=== PATIENT | female | born 1945 | race Caucasian/White ===

== ENCOUNTER 2017-04-20 04:57 | Inpatient (IN) | payer MEDICARE ==
[~2017-04-20] VITALS: Ht 162.6 cm; Wt 47.6 kg
[2017-04-20] MEDS ORDERED: AZITHROMYCIN INJ 500 MG, VIAL MATE ADAPTER 1 EACH in D5W 250 ML IV ONE (05:30)
[2017-04-20 05:35] LABS: ABG BASE EXCESS -5.3 (-2.0-2.0); ABG HCO3 19.8 MEQ/L (22.0-26.0); ABG PARTIAL PRESSURE CO2 36.8 mmHg (35.0-45.0); ABG PARTIAL PRESSURE O2 98.5 mmHg (75.0-100.0); ABG STANDARD HCO3 20.1 MEQ/L (22.0-26.0); ABG TOTAL CO2 20.9 MEQ/L (23.0-31.0); ABG pH (ARTERIAL) 7.348 UNITS (7.350-7.450)
[2017-04-20] MEDS ORDERED: LEVO1INJ IV (05:45)
[2017-04-20] MEDS ORDERED: NITR2OI TOP (05:45)
[2017-04-20] MEDS ORDERED: AZIT500I IV (05:45)
[2017-04-20 05:47] LABS: ADD MANUAL DIFFER YES; DIFF SLIDE NUMBER 92; MEAN CORPUSCULAR HEMOGLOBIN 28.4 pg (27.0-33.0); MEAN CORPUSCULAR HGB CONC 34.3 g/dl (32.0-36.5); PLATELET COUNT, AUTOMATED 374 k/mm3 (150-450); RED CELL DISTRIBUTION WIDTH 14.9 % (11.5-14.5)
[2017-04-20] MEDS ORDERED: PATIENT COMMENT (05:48)
[2017-04-20 06:10] LABS: CALCIUM LEVEL 8.8 MG/DL (8.8-10.2); CREATININE FOR GFR 4.2 MG/DL (0.55-1.02); GLOMERULAR FILTRATION RATE 11.1 (>39); POTASSIUM SERUM 3.8 MEQ/L (3.5-5.1); THYROXINE (T4) 8.7 UG/DL (4.5-12.0)
[2017-04-20 06:14] LABS: BANDS 2 % (< 11); BASOPHILS 2 % (0-4); EOSINOPHILS 1 % (0-5)
--- NOTE | 2017-04-20 06:18 | HPEPDOC ---
[facility] Medical History & Physical History and Physical Primary care provider: Unknown Date of Admission: 04/20/2017 Attending: Dr. Cathy Moe CHIEF COMPLAINT: Altered mental status in the setting of acute renal failure HISTORY OF PRESENT ILLNESS: A sticky note on the front of the chart received from [facility] indicates that a person of contact is Chitra Whittington , multiple attempts to contact her have been made by our ED staff with no avail. The patient is not conversant, the only thing she says is "no" and shakes her head. All history was obtained from medical records. The patient was transferred to our facility from [facility]. Apparently she is from [place], she turned to [place] to visit her ex- who is now on hospice. The following is a direct quote from the [facility] ED HPI : "She has been in the [facility] for 5 days where she has been living with her daughter. Over the span of time she has been getting weaker and weaker, not eating, not drinking and feeling very tired with a productive cough over the same timeframe. No fever but some chills." Also nursing note from [facility] states: "Daughter states patient has been with her for 5 days and she has seen a steady decline in her health. Patient staggers when she walks, has trouble focusing, falling asleep, dropping things. Patient complaining of pain in back" ALLERGIES: Penicillins-anaphylaxis PAST MEDICAL HISTORY: [place] Press cancer left breast Diabetes mellitus Hypertension High cholesterol Depression Cervical CA PAST SURGICAL HISTORY: Gallbladder Hysterectomy Left breast CA Back surgery Appendix SOCIAL HISTORY: 50+ pack year smoking, currently 1 pack per day smoker FAMILY HISTORY: Could not find in any medical record REVIEW OF SYSTEMS: Unobtainable PHYSICAL EXAMINATION: Vitals: Temperature 98.7, pulse 87, respiratory rate 20, blood pressure 113/58, pulse oximetry 100% on 2 L nasal cannula General: Reclined in the ED stretcher. She has not really awake, neither alert. She does not answer questions appropriately. HEENT: Head normocephalic atraumatic, pupils equally reactive to light and accommodation, conjunctiva are pink, sclera are nonicteric. Buccal mucosa appears dry. Respiratory: Moderate to heavy expiratory and inspiratory wheezing noted throughout Cardiovascular: Heart sounds were difficult to distinguish however she appears to have a regular rate and rhythm, with no rubs, gallops, or murmur. Abdomen: Soft, no hepatosplenomegaly appreciated. She does not appear to grimace upon palpation. Bowel sounds present. Extremities: 2+ pulses in the radial and dorsalis pedis bilaterally. No evidence of clubbing or cyanosis. As a matter fact she appears to be clinically dry with tenting of the skin. ELECTROCARDIOGRAM: Sinus tachycardia. Minimal voltage criteria for LVH, maybe normal variant IMAGING: CT of the chest and abdomen is currently pending. These were performed to evaluate the presence of pneumonia, and determine if there are any structural abnormalities and may contribute to renal failure. ASSESSMENT: 1. Metabolic encephalopathy 2. Acute renal failure 3. Suspected pneumonia 4. Presumed COPD from medical record, with significant wheezing currently 5. DVT Prophylaxis with Heparin PLAN: Given Levaquin at [facility], azithromycin was added upon arrival to our emergency department. Will order a CT scan of the chest and abdomen for evaluation of pneumonia as well as to determine if there are any thien structural abnormalities or hydronephrosis contributing to the cause of her acute renal failure. Will start her on normal saline, give her nebs for her wheezing, check serial check labs, and check Q6 fingersticks. Nephrology will be consulted in the morning. It is unclear at to whether her kidney disease is acute or chronic, and impossible at this time to know her baseline. No clear etiology for her altered mental status at this time either. My preceptor for this patient encounter was physically present in the building during the encounter and was fully available. As needed, all aspects of the patient interview, examination, medical decision making process, and medical care plan development were reviewed and approved by the preceptor. Preceptor is aware and concurs with the plan as stated in the body of this note and will attest to such by his/her cosignature. Laboratory Data Labs 24H Laboratory Tests 2 04/20/17 05:17: Blood Gas Bicarbonate Standard 20.1L, Arterial Blood pH 7.348L, Arterial Blood Partial Pressure CO2 36.8, Arterial Blood Partial Pressure O2 98.5, Arterial Blood Total CO2 20.9L, Arterial Blood HCO3 19.8L, Arterial Blood Base Excess - 5.3L, Arterial Blood Oxygen Saturation 97.2 04/20/17 05:22: Neutrophils 76H, Band Neutrophils 2, Lymphocytes (Manual) 12L, Monocytes (Manual ) 7, Eosinophils (Manual) 1, Basophils (Manual) 2, Platelet Estimate INCREASED, Red Blood Cell Morphology NORMAL, Anion Gap 13, Glomerular Filtration Rate 11.1L , Lactic Acid Level 0.9, Blood Urea Nitrogen 51H, Creatinine 4.20H, Sodium Level 133L, Potassium Level 3.8, Chloride Level 96L, Carbon Dioxide Level 24, Calcium Level 8.8, Thyroid Stimulating Hormone (TSH) 0.195L, Free Thyroxine Index 3.0, Thyroxine (T4) 8.7, Triiodothyronine (T3) Uptake 35 CBC/BMP Laboratory Tests 04/20/17 05:22 Red Blood Count 4.13, Mean Corpuscular Volume 83.0, Mean Corpuscular Hemoglobin 28.4, Mean Corpuscular Hemoglobin Concent 34.3, Red Cell Distribution Width 14.9 H, Calcium Level 8.8 Microbiology Microbiology 04/20/17 Blood Culture, Received Pending Home Medications Scheduled (Levofloxacin in 5% Dextro 500 mg/100Ml) 1 Inj Inj, 1 INJ IV ASDIRECTED 1 TIME DOSE AT [facility] Azithromycin (Azithromycin) 500 Mg Inj, 500 MG IV ASDIRECTED 1 TIME DOSE AT [facility] Nitroglycerin (Nitro-Bid) 1 Gm Oint, 0.5 GM TOP ASDIRECTED 1 TIME DOSE AT [facility] Miscellaneous Medications [Patient Comment] PATIENT VERY LETHARGIC, UNABLE TO GIVE ANSWER TO MEDICATIONS OR PHARMACY, HAVE NUMBER FOR BEST FRIEND. TRIED AT 5:40, NO ANSWER. WILL HAVE NEXT SHIFT TRY. Allergies Coded Allergies: Penicillins (Verified Allergy, Severe, anaphylaxis , 04/20/17) OSMIN FONG DO Apr 20, 2017 06:18
--- NOTE | 2017-04-20 06:50 | REPUSA ---
CLINICAL HISTORY: Suspected pneumonia. TECHNIQUE: Multiple axial CT images were obtained through the thorax without IV contrast material. COMMENTS: There is bilateral peribronchial interstitial thickening suggestive of bronchitis. Mild emphysema. Scattered bilateral nodular groundglass densities of the lungs. Airspace consolidation in the lingula with early central cavitation. There are no pleural effusions. There is no evidence of hilar or mediastinal lymphadenopathy. The hea rt and great vessels are within normal limits. The visualized portions of the liver are of uniform attenuation without mass or defect. There is no i ntra or extrahepatic biliary ductal dilatation. The spleen is unremarkable. The visualized pancreas i s of normal contour and attenuation characteristics. There is no evidence of adrenal mass. The visual ized portions of the kidneys present no abnormalities. The bony structures are free of lytic or blastic lesions. IMPRESSION: Multifocal airspace disease. Possibly bronchopneumonia. Early cavitation and a lingular consolidation. Clinical evaluation and followup are suggested to excl ude underlying neoplastic pathology. Bronchiolitis. Emphysema. Thank you for your kind referral of this patient.
--- NOTE | 2017-04-20 07:00 | REPUSA ---
CLINICAL HISTORY: Abdominal pain. TECHNIQUE: Multiple axial, sagittal and coronal CT images were obtained through the abdomen and pelvi s without administration of oral or IV contrast material. COMMENTS: Diffuse thickening of the wall of the colon. Diffuse thickening of the proximal small bowels. Mild hepatomegaly. Diffuse thickening of the bladder. Cholecystectomy. The liver is of uniform attenuation without mass or defect. There is no intra or extrahepatic biliary ductal dilatation. The spleen is normal. The gallbladder is surgically absent. The pancreas is of normal contour and attenuation characteristi cs. The kidneys are normal in size, shape and configuration. No renal or ureteral calculi are identified. There is no hydroureter or hydronephrosis. 2.5 cm left adrenal adenoma. Probably benign. There is no evidence for appendicitis. No evidence for small or large bowel obstruction. There is no evidence of abdominal ascites or lymphadenopathy. There is no evidence of intrinsic or extrinsic bladder mass. There is no pelvic ascites or lymphadeno huang. Images of the lung bases show no evidence of pleural or parenchymal mass. There are no pleural effusi ons. The bony structures are free of lytic or blastic lesions. Multilevel degenerative changes are seen in volving the thoracolumbar spine. Scattered calcifications are seen involving the aorta and major branches compatible with atherosclero sis. Bilateral breast prostheses are noted. IMPRESSION: Enterocolitis. No perforation or abscess formation. No free fluid. No evidence of pneumatosis intestinalis. Cholecystectomy. Hepatomegaly. Thank you for your kind referral of this patient.
[2017-04-20 07:40] VITALS: BP 118/55
--- NOTE | 2017-04-20 07:47 | REP ---
Portable chest, 05:25 a.m., single AP view, patient sitting: There are interstitial infiltrates. There is focal increased radiodensity inferiorly in the left lung compatible with a focal alveolar infiltrate. There are no pleural effusions. Cardiac size is normal. The bindu, mediastinum, and bony thorax are unremarkable. Impression: Interstitial infiltrates. Focal alveolar infiltrate inferiorly in the left lung. Signed by Parveen Ag MD 04/20/2017 07:39 A
[2017-04-20 08:00] VITALS: BP 130/60
[2017-04-20] MEDS: IPRATROPIUM 0.5MG/ALBUTEROL 2.5MG INH SOL UD 3ML (DUONEB)(J7620) NEB SCH ×3 (08:00→23:40)
[2017-04-20] MEDS: TIOTROPIUM INHALER/CAPSULE (SPIRIVA) INH SCH (08:00)
[2017-04-20] MEDS: ADVAIR HFA 230/21MCG INHALER INH SCH ×2 (09:00→20:37)
[2017-04-20] MEDS: NS 1,000 ML IV SCH ×2 (09:42→17:35)
[2017-04-20] MEDS ORDERED: NS 1,000 ML IV ONE (10:00)
[2017-04-20 10:15] LABS: CHOLESTEROL LEVEL 126 MG/DL (<200); FERRITIN 340 NG/ML (8-252); MAGNESIUM LEVEL 1.5 MG/DL (1.8-2.4); PERCENT SATURATION 6.6 % (13.2-45.0); PHOSPHORUS LEVEL 5.7 MG/DL (2.5-4.9); TOTAL IRON BINDING CAPACITY 242 UG/DL (250-450); TRIGLYCERIDES LEVEL 310 MG/DL (<150)
[2017-04-20] MEDS: SENOKOT S TAB PO SCH ×2 (10:20→21:02)
[2017-04-20] MEDS: HEPARIN SOD (PORCINE) 5000 UNITS/ML VIAL SC SCH ×2 (10:41→21:03)
[2017-04-20] MEDS: ALBUTEROL SULFATE 2.5 MG/0.5 ML INH NEB SOLN NEB PRN ×2 (10:50→20:35)
[2017-04-20 12:00] VITALS: BP 143/74
[2017-04-20] MEDS ORDERED: cefTRIAXone SOD 1 GM in D5W MINI-BAG PLUS 50 ML IV ONE (12:15)
--- NOTE | 2017-04-20 12:41 | CR ---
DATE OF CONSULTATION: 04/20/2017 REQUESTING PHYSICIAN: Dr. Manjinder Nguyen. CONSULTING PHYSICIAN: Dr. Henderson. REASON FOR CONSULTATION: Management of acute kidney injury with an unknown past medical history. CHIEF COMPLAINT: Patient was transferred from [facility] last night because of acute renal failure, weakness and cough. HISTORY OF PRESENT ILLNESS: Most of the history was obtained from patient's chart and from primary medical team. Patient is unable to provide any reliable history at this time. Yamileth Madison is a 72-year-old female and as per chart documentation, patient has a past medical history of diabetes mellitus type 2, hypertension, history of CA breast and CA cervix in the past. She was recently visiting [place] for the 5 days. She was staying with her daughter. She was here to see her ex- who in the hospice at this time and as reported by daughter, patient was feeling very weak, tired, lethargic, was getting more and more confused, was not eating anything or drinking anything. She was having a productive cough for the last 1 week almost. She had trouble doing her activities of daily life. Patient was found to have acute renal failure on labs done at [facility] so she was transferred to [facility] overnight to intensive care unit (ICU) for further management and higher level of care. On arrival, patient got IV antibiotics. She has received IV azithromycin and Levaquin. Initial imaging done on admission to intensive care unit (ICU) showed that she had multifocal air space disease, possibly bronchopneumonia. Initial labs on arrival showed that her creatinine was 4.2. Nephrology service was called for further help in the management of acute renal failure. There is no known history of renal disease in the past and past labs are not known because patient is from [place] at this time. When I saw the patient today morning in the intensive care unit (ICU), she was actively wheezing. She was in mild to moderate respiratory distress. She was otherwise hemodynamically stable. She was very dry and dehydrated. She had not received any IV fluids since overnight when I saw the patient and there was no urine output recorded. Patient was unable to provide any reliable history to me. PAST MEDICAL HISTORY: Patient has a past medical history of: Diabetes mellitus type 2. History of hypertension. Hyperlipidemia. Depression. History of CA cervix in the past. History of left breast cancer. Myocardial infarction ([place]) in the past. PAST SURGICAL HISTORY: Status post cholecystectomy in the past. Status post hysterectomy in the past. Status post left breast cancer surgery. History of back surgery. Appendix surgery in the past. ALLERGIES: There is history of allergies to PENICILLIN with anaphylactic reaction. FAMILY HISTORY: Family history is not available at this time and patient is unable to provide any family history. SOCIAL HISTORY: Patient is from [place]. She was just visiting her daughter at [place] for the last 5-6 days. There is 50+ pack year history of smoking. When I asked the patient this morning, she actually admitted that she is an active smoker but she denies any history of chronic obstructive pulmonary disease (COPD). REVIEW OF SYSTEMS: Patient is very obtunded and confused at this time. She is unable to provide any reliable review of systems to me but she is in moderate respiratory distress and she was tachypneic. PHYSICAL EXAMINATION: General: Patient is drowsy, obtunded, oriented times one, lying in bed, moderate respiratory distress. Vital signs: Temperature is 98 degrees Fahrenheit, blood pressure is 130/60, pulse is 92, respiratory rate of 21, saturation 99% on nasal cannula. Head and neck exam: Pupils equally round and reactive to light. Patient is weak and cachectic with some temporal wasting. Mucous membranes are very dry. She has a very dry and beefy tongue. Neck is supple. There is no jugular venous distention (JVD). Cardiovascular: S1, S2. Regular rate. No murmur, rub or gallop. Respiratory: Patient has active wheezing. Patient has expiratory rhonchi all over the lungs and there is decreased air entry at the bases. Abdomen is soft, positive bowel sounds. No organomegaly. No ascites is noted. There is old midline abdominal surgical scar present. Musculoskeletal: No clubbing or cyanosis. Pulses are 2+. No edema of the extremities. Skin: No rashes or ulceration. Patient has very dry skin with no skin turgor. Psych: Patient is obtunded. Lymph node: No significant, cervical, axillary or inguinal lymphadenopathy noted. LAB REVIEW: CBC showed WBC of 11, hemoglobin 11.7, platelets are 374. ABC showed pH of 7.34, pCO2 of 36.8, pO2 98.5. Bicarbonate of 20.9. Oxygen saturation is 97.2%. BMP showed sodium 133, potassium 3.8, chloride 96, bicarbonate 24. BUN 51, creatinine is 4.2. A1c is 7.9. Phosphorus 5.7. Magnesium 1.5. Patient has low iron levels with a high ferritin of 340. TSH is 0.19 with a normal free T4 and T3. PTH is 137. There is no urinalysis available at this time. Microbiology: Blood cultures are pending. IMAGING: A CT scan of the abdomen and pelvis showed enterocolitis. No perforation or abscess. No free fluid. History of cholecystectomy. A CT scan of the chest was done which showed multifocal air space disease, possibly bronchopneumonia. Early cavitation and lingular consolidation was also seen. There was emphysema as well. CURRENT INPATIENT MEDICATION: Patient's medications were all reviewed by me. She is currently in azithromycin 500 mg IV times one dose was given. She is on Levaquin 250 mg IV every 48 hours. I gave her normal saline bolus 1 liter. She was started on normal saline at 160 an hour. Patient is on DuoNeb nebulizations every 2 hours. She is on heparin subcutaneous and Zofran as needed. ASSESSMENT: 72-year-old female with past medical history of diabetes mellitus type 2, hypertension, history of CA cervix and CA breast in the past, admitted this time to intensive care unit (ICU) with pneumonia, sepsis, altered mental status and acute renal failure along with moderate respiratory distress. PLAN: 1. Acute renal failure. There is no baseline renal function known. Patient is from [place]. I would assume in this acute setting of pneumonia, dehydration, poor oral intake, it must be an acute kidney injury. Patient looks very dry and volume depleted. I gave her a bolus of normal saline. I have also placed a Ma catheter around 120 mL of dark colored urine came out. Continue to monitor intake and output. Avoid bridgett inhibitors, angiotensin receptor blockers (ARBs), non-steroidal anti-inflammatory drugs (NSAID)s, IV contrast studies at this time. Continue IV fluid hydration at 150 mL/hr. As far as I can see on CT scan, the kidneys look to be normal in size. 2. Hyponatremia. This is most likely hypovolemic hyponatremia. Sodium level is expected to improve with normal saline hydration. 3. Sepsis secondary to bronchopneumonia. Patient is allergic to penicillins. She has been started on IV azithromycin and IV Levaquin. Continue the antibiotics at this time. Lactate is normal and she is hemodynamically stable. 4. Acute chronic obstructive pulmonary disease (COPD) exacerbation. Patient is currently actively wheezing. COPD exacerbation might have been secondary to bronchopneumonia and acute infection. Continue the IV antibiotics. Patient will be started on nebulizations. She has not received any nebulizations since overnight. I have also called pulmonary service to help us in the management of this patient. Patient most likely has chronic COPD because of history of 50 pack year of smoking. 5. Metabolic encephalopathy. It is most likely secondary to a combination of acute renal failure, dehydration and volume depletion and bronchopneumonia along with COPD. Continue IV fluid hydration and IV antibiotics. Management of COPD as per pulmonology service. There is no urgent indication to do hemodialysis at this time. Continue close monitoring in the intensive care unit (ICU) at this time. 6. Diabetes mellitus type 2. Hemoglobin A1c is 7.9 at this time. Fasting glucose is 147. Continue the insulin sliding scale at this time. Avoid metformin. 7. Iron deficiency anemia. Patient has low iron levels. Hemoglobin is 11.7. No IV iron at this time because of active infection. When patient's clinical status improves, she will be started on oral iron therapy. 8. Secondary hyperparathyroidism. PTH level is 137 which is higher than normal, however, I am not going to start the calcitriol at this time. I am hopeful that patient will recovery from acute kidney failure. Thank you for involving us in the care of this patient. We shall be happy to follow the patient along with you tomorrow morning. I spent a total of 45 minutes in the critical care of this patient in the intensive care unit. Plan of care was discussed with the patient's RN at the bedside, with the hospitalist team and with pulmonary critical care service today morning in the intensive care unit (ICU).
[2017-04-20] MEDS ORDERED: CELE100C PO (13:11)
[2017-04-20] MEDS ORDERED: TEMA15CA2 PO (13:11)
[2017-04-20] MEDS ORDERED: OXYC40TA29 PO (13:11)
[2017-04-20] MEDS ORDERED: FLUO40CA PO (13:11)
[2017-04-20] MEDS ORDERED: METF10004 PO (13:11)
[2017-04-20] MEDS ORDERED: LYRI150C PO (13:11)
[2017-04-20] MEDS ORDERED: DIAZ5TAB PO (13:11)
[2017-04-20] MEDS ORDERED: BACL10TA2 PO (13:11)
[2017-04-20] MEDS ORDERED: LETR2.5T2 PO (13:11)
[2017-04-20] MEDS ORDERED: JANU100T PO (13:11)
[2017-04-20] MEDS: metroNIDAZOLE 500 MG in APPROPRIATE DILUENT 1 EA IV SCH ×2 (14:27→21:03)
[2017-04-20 15:36] LABS: ALBUMIN 1.9 GM/DL (3.2-5.2); CALCIUM LEVEL 8.1 MG/DL (8.8-10.2); CREATININE FOR GFR 3.94 MG/DL (0.55-1.02); PHOSPHORUS LEVEL 4.9 MG/DL (2.5-4.9); POTASSIUM SERUM 4.4 MEQ/L (3.5-5.1)
[2017-04-20 16:00] VITALS: BP 109/55
--- NOTE | 2017-04-20 16:24 | CR ---
DATE OF CONSULTATION: 04/20/2017 REQUESTING PROVIDER: Dr. Henderson REASON FOR CONSULTATION: Pneumonia in a smoker with wheezing and probably chronic obstructive pulmonary disease (COPD). HISTORY OF PRESENT ILLNESS: Ms. Madison is a 72-year-old female who reportedly came to visit in the area due to an ex- on hospice. She was noticed by her daughter to have increased weakness, decreased appetite, decreased eating over the past few days and also presented with some abdominal discomfort and confusion. She presented to [facility] and was found to have acute renal failure and sent here. Based on imaging, there is some question of pneumonia verus enterocolitis. Initially she was on Levaquin. Nephrology was consulted for acute kidney injury. The patient states that she is an active smoker, smoking a pack a day. She answers "no" to most questions, including chest pain, hemoptysis. It is not clear that she is having a productive cough. The history is quite unreliable and difficult due to the patient's ability to provide her own history, and her family is not at bedside or obtainable by phone at this time. PAST MEDICAL HISTORY: Difficult also to obtain. 1. Patient reportedly has coronary artery disease. 2. Had a left-sided breast cancer, which is fairly obvious by chest CT, as there are breast implants. 3. Hypertension. 4. Type 2 diabetes. 5. Hyperlipidemia. 6. History of cervical cancer. 7. Nicotine dependence with presumed chronic obstructive pulmonary disease (COPD). HOME MEDICATIONS: In questions. MEDICATIONS IN THE HOSPITAL: Include: - acetaminophen - Senokot - Zofran - heparin 500 units subcutaneous twice a day for deep vein thrombosis (DVT) prophylaxis. - levofloxacin 250 mg intravenous (IV) It does appear based on the history and physical that the patient was on by mouth Levaquin prior to admission. REVIEW OF SYSTEMS: At this point in time, review of systems is unobtainable. SOCIAL HISTORY: Unobtainable. FAMILY HISTORY: Unobtainable. PHYSICAL EXAMINATION: VITAL SIGNS: Temperature is 98.0, pulse is 92, respiratory rate is 21, blood pressure is 130/60, oxygen saturation is 99% on 1 liter. GENERAL: Patient is lying in bed with her eyes closed. Not readily answering questions. Does not appear to be tachypneic. HEENT: Sclerae clear and anicteric. Pupils are 6 mm and reactive to light. Mucous membranes are dry. Tongue is dry, midline. She is edentulous with upper and lower dentures in place. NECK: Supple. No tracheal deviation. No mass. No thyromegaly. No cervical, supraclavicular, or axillary adenopathy. CARDIAC: Distant S1, S2 without audible murmur, rub, or gallop. No elevated jugular venous pulse (JVP). No peripheral edema. PULMONARY: There is diffuse expiratory wheeze in both velarde but more prominent on the left. There is no dullness to percussion. No rhonchi. No rales. ABDOMEN: Soft, nontender, nondistended, although there is mention of hepatomegaly on her CT scan. I did not palpate this on exam. No evidence of mass or hernia. No splenomegaly. No bruits of large vessels of abdomen. EXTREMITIES: No cyanosis, clubbing, or edema. MUSCULOSKELETAL: Appears to have some muscle wasting. No obvious fracture or joint effusion. NEUROLOGIC: No unilateral weakness, tremor, or myoclonus. No asterixis. LABORATORY EVALUATION: Shows sodium 133, potassium 3.8, bicarbonate of 24, BUN of 51, creatinine of 4.2 with a glucose of 147. White blood cell count is 11.0, hemoglobin 11.7, hematocrit of 34.2 with a platelet count of 374 with 76% neutrophilia. Arterial blood gas shows a pH of 7.35, pCO2 of 37, paO2 of 99. Chest CT shows a lingular infiltrate. There are some nonspecific areas of inflammation that were referred to as bronchiolitis by the interpreting radiologist. Minimal amount of emphysema. Possibly bronchiectasis versus peribronchial thickening. No significant lymphadenopathy. Abdominal CT mentions hepatomegaly and possibility of enterocolitis. ASSESSMENT: 1. Abnormal chest CT. Probably community-acquired lingular pneumonia versus radiation fibrosis. I am not aware of the actual treatment she received for her left-sided breast cancer, and therefore with the findings of leukocytosis, altered mental status, and dehydration in a smoker with infiltrate, I think it is reasonable to treat as this is a community-acquired pneumonia with ceftriaxone and azithromycin. Ceftriaxone will partially cover any gastrointestinal (GI) pathogen, and the primary care has added Flagyl for possible enterocolitis. 2. Chronic obstructive pulmonary disease (COPD) with wheeze on exam. I presume the patient has COPD, although I do not have pulmonary function testing to validate this suspicion. I will place the patient on Advair and Spiriva at this point in time. I do not believe she requires steroids. Will continue to monitor. 3. Nicotine dependence. Extensively counseled on the need to quit smoking. At this point in time I do not believe she is able to be effectively counseled until her mentation has improved. Nicotine replacement can be considered while in the hospital while she is here. 4. Acute kidney injury. I agree with nephrology, this is likely due to dehydration, possibly early sepsis. Agree with aggressive fluid administration with monitoring of pulmonary status. 5. Altered mental status with reports of hepatomegaly on CT scan. Liver function tests (LFTs) and ammonia level were added to her blood work. Thank you for this consultation.
[2017-04-20 20:00] VITALS: BP 138/63
[2017-04-21] VITALS: BP 157/70
[2017-04-21 04:00] VITALS: BP 124/59
[2017-04-21] MEDS: NS 1,000 ML IV SCH ×3 (04:38→22:47)
[2017-04-21 04:53] LABS: BASO % 0.3 % (0.0-1.0); EOS # 0.1 K/mm3 (0.0-0.50); EOS % 1.5 % (0.0-3.0); LARGE UNSTAINED CELL # 0.3 K/mm3 (0.0-0.4); LARGE UNSTAINED CELL % 2.7 % (0.0-4.0); LYMPH # 0.8 K/mm3 (1.5-4.5); LYMPH % 9.2 % (24.0-44.0); MEAN CORPUSCULAR HEMOGLOBIN 27.9 pg (27.0-33.0); MONO # 0.3 K/mm3 (0.0-0.8); MONO % 3.3 % (0.0-5.0); NEUTROPHILS # 7.6 K/mm3 (1.8-7.7); PLATELET COUNT, AUTOMATED 402 k/mm3 (150-450); WHITE BLOOD COUNT 9.1 K/mm3 (4.0-10.0)
[2017-04-21 04:57] LABS: INR 1.07
[2017-04-21 05:13] LABS: ALBUMIN/GLOBULIN RATIO 0.49 (1.00-1.93); ALKALINE PHOSPHATASE 74 U/L (45-117); ALT/SGPT 6 U/L (12-78); ANION GAP 9 MEQ/L (8-16); AST/SGOT 10 U/L (15-37); BILIRUBIN,DIRECT < 0.1 MG/DL (0.0-0.2); BILIRUBIN,TOTAL 0.2 MG/DL (0.2-1.0); BLOOD UREA NITROGEN 45 MG/DL (7-18); CARBON DIOXIDE LEVEL 20 MEQ/L (21-32); CHLORIDE LEVEL 105 MEQ/L (98-107); CREATININE FOR GFR 3.58 MG/DL (0.55-1.02); GLOMERULAR FILTRATION RATE 13.4 (>39); GLUCOSE, FASTING 168 MG/DL (83-110); POTASSIUM SERUM 4.4 MEQ/L (3.5-5.1); SODIUM LEVEL 134 MEQ/L (136-145); TOTAL PROTEIN 6.1 GM/DL (6.4-8.2)
[2017-04-21] MEDS: metroNIDAZOLE 500 MG in APPROPRIATE DILUENT 1 EA IV SCH ×3 (05:52→22:47)
[2017-04-21] MEDS ORDERED: LevoFLOXacin IV 250 MG in APPROPRIATE DILUENT 1 EA IV SCH (07:00)
[2017-04-21] MEDS: ADVAIR HFA 230/21MCG INHALER INH SCH ×2 (07:54→19:33)
[2017-04-21] MEDS: TIOTROPIUM INHALER/CAPSULE (SPIRIVA) INH SCH (07:54)
[2017-04-21] MEDS: IPRATROPIUM 0.5MG/ALBUTEROL 2.5MG INH SOL UD 3ML (DUONEB)(J7620) NEB SCH ×3 (07:55→23:59)
[2017-04-21 08:00] VITALS: BP 139/66
[2017-04-21] MEDS: HEPARIN SOD (PORCINE) 5000 UNITS/ML VIAL SC SCH ×2 (08:26→20:36)
[2017-04-21] MEDS: AZITHROMYCIN 250 MG TAB PO SCH (08:26)
[2017-04-21] MEDS: SENOKOT S TAB PO SCH ×2 (08:26→20:37)
[2017-04-21 08:58] LABS: HEPATITIS B SURFACE ANTIBODY NEGATIVE (POSITIVE)
[2017-04-21] MEDS ORDERED: GLUCOSE 4 GM CHEW TABLET PO PRN (11:00)
[2017-04-21] MEDS ORDERED: DEXTROSE 50% 50 ML SYRINGE IV PRN (11:00)
[2017-04-21] MEDS ORDERED: GLUCAGON FOR INJ 1 MG VIAL (J1610) SC PRN (11:00)
[2017-04-21] MEDS: methylPREDNISolone INJ 125 MG/2 ML VIAL (J2930) IV SCH ×2 (11:43→22:47)
[2017-04-21 12:00] VITALS: BP 147/88
--- NOTE | 2017-04-21 13:11 | IPN ---
DATE OF SERVICE: 04/21/2017 SUBJECTIVE: Patient was seen and examined at the bedside today morning in the intensive care unit (ICU). Patient is much more awake and alert today as compared with yesterday. She is able to respond to questions. She is hemodynamically stable. Urine output improved overnight with the IV fluid hydration. There is slight improvement in the kidney function today as compared with yesterday, however, patient continues to have active wheezing. Patient was seen yesterday by pulmonology service. Bronchodilators were started yesterday and antibiotics were changed. However, patient was not started on steroids. REVIEW OF SYSTEMS: Patient denies any fevers or chills. She denies any chest pain but she does report shortness of breath and cough and wheezing. She denies any pain in abdomen, constipation or diarrhea. The rest of review of system is negative. OBJECTIVE: Vital signs: Temperature is 98 degrees Fahrenheit, blood pressure is 147/88, pulse is 92, respiratory rate of 18, saturating 100% on nasal cannula. Intake and output: Urine output recorded as 920 mL yesterday, 1.9 liters so far today since overnight. Weight on the bed scale is 52.1 kg. PHYSICAL EXAMINATION: General: Patient is awake, alert, oriented times two, lying in bed, in moderate respiratory distress. Head and neck exam: Extraocular muscles intact. Pupils equally round and reactive to light. Mucous membranes are still dry. Neck is supple, there is no jugular venous distention (JVD). Cardiovascular: S1, S2. Regular rate. No murmur, rub or gallop. Respiratory: Patient has active wheezing and she has diffuse expiratory rhonchi all over the lungs. Abdomen is soft, diminished bowel sounds. Nontender. No organomegaly. Musculoskeletal: No clubbing or cyanosis. Pulses are 2+. No edema of the extremities. Skin: No rashes or ulcers. Patient has dry skin with decreased skin turgor. Psych: Patient is much more alert today as compared with yesterday. LAB REVIEW: CBC showed WBC 9.1, hemoglobin 10.1, platelets of 402. Urinalysis done yesterday showed it was cloudy with 11 WBC and 8 RBC but negative leukocyte esterase and nitrite. BMP this morning showed sodium 134, potassium 4.4, chloride 105, bicarbonate 20. BUN 45, creatinine is 3.5. Glomerular filtration rate around 13.4. Calcium is 8. Ammonia is 38. Microbiology: Urine culture is pending and blood culture is pending. CURRENT INPATIENT MEDICATIONS: Patient's medications are all reviewed by me. She is currently on: - Rocephin 1 gram IV ever 24 hours - Flagyl 500 mg IV every 8 hours - She continues to be on IV normal saline at 100 mL an hour. - I also started the patient on Solu-Medrol 60 mg IV every 12 hours. - She was started on Advair two puffs twice a day and Spiriva one inhalation daily starting yesterday. ASSESSMENT: 72-year-old female with past medical history of diabetes mellitus type 2, hypertension, history of CA cervix and CA breast in the past admitted this time to intensive care unit (ICU) with pneumonia, sepsis, altered mental status, acute renal failure and acute chronic obstructive pulmonary disease (COPD) exacerbation. PLAN: 1. Acute renal failure. There is no baseline renal function known. Patient was very dehydrated and volume depleted yesterday. She was given IV fluid bolus. She continues to be on IV normal saline. Urine output is improving. I see a down trend in the creatinine. Continue the IV fluid hydration at this time. 2. Hyponatremia. It is most likely hypovolemic hyponatremia. Sodium level is improving to 134 today. Continue the IV fluid hydration. 3. Sepsis secondary to bronchopneumonia. Patient's IV antibiotics were changed to Rocephin, azithromycin and Flagyl. White cell count is improving. She is hemodynamically stable. Continue the current antibiotics and continue the fluid hydration at this time. 4. Metabolic acidosis. It is secondary to acute renal failure. Serum bicarbonate is 20. Bicarbonate level is expected to improve with improvement of the renal function. No need of IV bicarbonate administration at this time. 5. Acute chronic obstructive pulmonary disease (COPD) exacerbation. Patient is actively wheezing. She was started on Advair and Spiriva yesterday. I have started the patient on IV Solu-Medrol 60 mg every 12 hours because of active wheezing and rhonchi. 6. Metabolic encephalopathy. It was secondary to a combination of pneumonia, acute renal failure and dehydration. Patient's mental status is significantly better today as compared with yesterday. She is able to communicate and answer questions. 7. Diabetes mellitus type 2. Patient's glucose levels are mostly less than 200s. Continue the insulin sliding scale which was started today because patient is being started on IV Solu-Medrol. Total time spent in the critical care of this patient in the intensive care unit (ICU) today was 40 minutes.
[2017-04-21] MEDS: cefTRIAXone SOD 1 GM in D5W MINI-BAG PLUS 50 ML IV SCH (14:08)
[2017-04-21 15:00] VITALS: BP 156/88
--- NOTE | 2017-04-21 15:01 | IPNPDOC ---
Text Note Date of Service The patient was seen on 04/21/17. NOTE Subjective: Patient feels much improved however still lethargic. States she has a productive cough now. Her abdominal pain is improving. Denies chest pain. Objective: Vitals: (see below) General: No acute distress, laying comfortably in bed. HEENT: Moist mucous membranes. Neck: No JVD or lymphadenopathy Cardiac: RRR, No murmurs Pulm: Expiratory wheezing/with rhonchi b/l. No crackles. No stridor or use of accessory muscles. Abd: Minimal tenderness to palpation in left upper quadrant. No rebound guarding or rigidity./ND + BS Ext: No edema or cyanosis Alert and oriented to person and place. Lethargic however easy to arouse. Follows commands. Moves all extremities. Labs (see below) Images: CT Abd/pelvis 04/20/17 IMPRESSION: Enterocolitis. No perforation or abscess formation. No free fluid. No evidence of pneumatosis intestinalis. Cholecystectomy. Hepatomegaly. CT Chest 04/20/17 IMPRESSION: Multifocal airspace disease. Possibly bronchopneumonia. Early cavitation and a lingular consolidation. Clinical evaluation and followup are suggested to exclude underlying neoplastic pathology. Bronchiolitis. Emphysema. Assessment/Plan 1. Sepsis secondary to community-acquired pneumonia as well as colitis- improving. On azithromycin/Rocephin for CAP, Rocephin and Flagyl for colitis. Hemodynamically stable. Improving. 2. Metabolic encephalopathy secondary to #1-improving. No focal deficits 3. Acute COPD exacerbation- patient states she currently smokes 1 pack per day. Emphysematous changes on CAT scan. No formal PFTs outpatient. Will need close outpatient pulmonary follow-up. On nebs, steroids. 4. Acute renal failure- likely secondary to dehydration, as well as sepsis. Improving on IV fluids. Continue IV fluids. Avoid nephrotoxins. 5. Hyponatremia- mild and improving on IV fluids. 6. Non-anion gap metabolic acidosis likely secondary to renal failure- continue IV fluids and monitor for improvement. 7. Diabetes mellitus- sliding scale insulin. DVT prophy: Heparin subcutaneous Prognosis guarded. VS,Fishbone, I+O VS, Fishbone, I+O Laboratory Tests 04/20/17 14:55 Anion Gap 12 04/21/17 04:38 Red Blood Count 3.63 L, Mean Corpuscular Volume 82.0, Mean Corpuscular Hemoglobin 27.9, Mean Corpuscular Hemoglobin Concent 34.0, Red Cell Distribution Width 15.0 H, Neutrophils (%) (Auto) 83.0 H, Lymphocytes (%) (Auto ) 9.2 L, Monocytes (%) (Auto) 3.3, Eosinophils (%) (Auto) 1.5, Basophils (%) ( Auto) 0.3, Neutrophils # (Auto) 7.6, Lymphocytes # (Auto) 0.8 L, Monocytes # ( Auto) 0.3, Eosinophils # (Auto) 0.1, Basophils # (Auto) 0.0 Vital Signs Date Time Temp Pulse Resp B/P (MAP) Pulse Ox O2 Delivery O2 Flow Rate FiO2 04/21/17 12:00 98.0 20 147/88 (107) 100 Nasal Cannula 1.0 04/21/17 08:00 92 I&O- Last 24 Hours up to 6 AM 04/22/17 06:00 Intake Total 925 ml Output Total 1500 ml Balance -575 ml INA DÍAZ MD Apr 21, 2017 15:01
[2017-04-21] MEDS ORDERED: LEVEMIR (INSULIN DETEMIR) 1 UNITS/0.01ML SC ONE (19:15)
[2017-04-21] MEDS ORDERED: HumaLOG INSULIN (NovoLOG) PER UNIT SC ONE (19:15)
[2017-04-21 19:58] LABS: CALCIUM LEVEL 7.8 MG/DL (8.8-10.2); CREATININE FOR GFR 2.76 MG/DL (0.55-1.02); GLOMERULAR FILTRATION RATE 18.1 (>39)
[2017-04-21 20:00] VITALS: BP 136/73
[2017-04-21] MEDS: HumaLOG INSULIN (NovoLOG) PER UNIT SC SCH (20:37)
[2017-04-22] VITALS (8 sets, daily range): BP systolic 115–200; BP diastolic 58–88
[2017-04-22 05:32] LABS: BASO % 0.2 % (0.0-1.0); EOS % 0.2 % (0.0-3.0); LARGE UNSTAINED CELL # 0.1 K/mm3 (0.0-0.4); LYMPH # 0.4 K/mm3 (1.5-4.5); LYMPH % 5.4 % (24.0-44.0); MEAN CORPUSCULAR HEMOGLOBIN 27.5 pg (27.0-33.0); MEAN CORPUSCULAR HGB CONC 33.4 g/dl (32.0-36.5); MEAN CORPUSCULAR VOLUME 82.5 fl (80.0-96.0); MONO # 0.3 K/mm3 (0.0-0.8); MONO % 3.7 % (0.0-5.0); NEUTROPHILS # 7.2 K/mm3 (1.8-7.7); NEUTROPHILS % 89.5 % (36.0-66.0); PLATELET COUNT, AUTOMATED 505 k/mm3 (150-450); RED CELL DISTRIBUTION WIDTH 14.9 % (11.5-14.5)
[2017-04-22] MEDS: metroNIDAZOLE 500 MG in APPROPRIATE DILUENT 1 EA IV SCH ×3 (05:34→21:23)
[2017-04-22 06:00] LABS: ALBUMIN/GLOBULIN RATIO 0.45 (1.00-1.93); BILIRUBIN,TOTAL 0.1 MG/DL (0.2-1.0); CALCIUM LEVEL 8.4 MG/DL (8.8-10.2); CREATININE FOR GFR 2.1 MG/DL (0.55-1.02); GLOMERULAR FILTRATION RATE 24.8 (>39); TOTAL PROTEIN 6.4 GM/DL (6.4-8.2)
[2017-04-22] MEDS ORDERED: LevoFLOXacin IV 250 MG in APPROPRIATE DILUENT 1 EA IV SCH (07:00)
[2017-04-22] MEDS: ADVAIR HFA 230/21MCG INHALER INH SCH (07:34)
[2017-04-22] MEDS: TIOTROPIUM INHALER/CAPSULE (SPIRIVA) INH SCH (07:34)
[2017-04-22] MEDS: IPRATROPIUM 0.5MG/ALBUTEROL 2.5MG INH SOL UD 3ML (DUONEB)(J7620) NEB SCH ×2 (07:35→15:33)
[2017-04-22] MEDS: LEVEMIR (INSULIN DETEMIR) 1 UNITS/0.01ML SC SCH ×2 (08:12→21:00)
[2017-04-22] MEDS: SENOKOT S TAB PO SCH ×2 (08:13→21:24)
[2017-04-22] MEDS: HEPARIN SOD (PORCINE) 5000 UNITS/ML VIAL SC SCH ×2 (08:13→21:23)
[2017-04-22] MEDS: HumaLOG INSULIN (NovoLOG) PER UNIT SC SCH ×4 (08:13→21:00)
[2017-04-22] MEDS: AZITHROMYCIN 250 MG TAB PO SCH (08:13)
[2017-04-22] MEDS ORDERED: amLODIPine 5 MG TAB PO ONE ×3 (10:00→17:00)
[2017-04-22] MEDS: NS 1,000 ML IV SCH ×2 (10:26→21:24)
[2017-04-22] MEDS: LETROZOLE 2.5 MG TAB PO SCH (10:26)
[2017-04-22] MEDS: predniSONE 10 MG TAB PO SCH (10:27)
[2017-04-22] MEDS: FLUoxetine 20 MG CAP PO SCH (10:27)
--- NOTE | 2017-04-22 13:43 | IPNPDOC ---
Text Note Date of Service The patient was seen on 04/22/17. NOTE Subjective: Mentation significantly improved. Eating breakfast, watching TV. Resp status improved. Objective: Vitals: (see below) General: No acute distress, laying comfortably in bed. HEENT: Moist mucous membranes. Neck: No JVD or lymphadenopathy Cardiac: RRR, No murmurs Pulm: Minimal rxpiratory wheezing, improved from yesterday. No crackles. Abd: Minimal tenderness to palpation in left upper quadrant. No rebound guarding or rigidity./ND + BS Ext: No edema or cyanosis AAO x 3. Moving ext, following commands. Labs (see below) Images: CT Abd/pelvis 04/20/17 IMPRESSION: Enterocolitis. No perforation or abscess formation. No free fluid. No evidence of pneumatosis intestinalis. Cholecystectomy. Hepatomegaly. CT Chest 04/20/17 IMPRESSION: Multifocal airspace disease. Possibly bronchopneumonia. Early cavitation and a lingular consolidation. Clinical evaluation and followup are suggested to exclude underlying neoplastic pathology. Bronchiolitis. Emphysema. Assessment/Plan 1. Sepsis secondary to community-acquired pneumonia as well as colitis- improving. On azithromycin/Rocephin for CAP, Rocephin and Flagyl for colitis. Hemodynamically stable. Improving. 2. Metabolic encephalopathy secondary to #1-resolved. No focal deficits 3. Acute COPD exacerbation- patient states she currently smokes 1 pack per day. Emphysematous changes on CAT scan. No formal PFTs outpatient. Will need close outpatient pulmonary follow-up. On nebs, steroids. 4. Acute renal failure- likely secondary to dehydration, as well as sepsis. Improving on IV fluids. Continue IV fluids. Avoid nephrotoxins. d/c prado 5. Hyponatremia- mild and improving on IV fluids. 6. Non-anion gap metabolic acidosis likely secondary to renal failure- continue IV fluids and monitor for improvement. 7. Diabetes mellitus- sliding scale insulin.Levemir started, and uptitrated. steroids decreased. 8. HTN - uncontrolled. Started on Amlodipine, and hydralazine prn. DVT prophy: Heparin subcutaneous Prognosis guarded. VS,Fishbone, I+O VS, Fishbone, I+O Laboratory Tests 04/21/17 19:19 Calcium Level 7.8 L 04/22/17 04:41 Calcium Level 8.4 L, Red Blood Count 3.66 L, Mean Corpuscular Volume 82.5, Mean Corpuscular Hemoglobin 27.5, Mean Corpuscular Hemoglobin Concent 33.4, Red Cell Distribution Width 14.9 H, Neutrophils (%) (Auto) 89.5 H, Lymphocytes (%) (Auto ) 5.4 L, Monocytes (%) (Auto) 3.7, Eosinophils (%) (Auto) 0.2, Basophils (%) ( Auto) 0.2, Neutrophils # (Auto) 7.2, Lymphocytes # (Auto) 0.4 L, Monocytes # ( Auto) 0.3, Eosinophils # (Auto) 0.0, Basophils # (Auto) 0.0, Aspartate Amino Transf (AST/SGOT) 7 L, Alanine Aminotransferase (ALT/SGPT) 8 L, Alkaline Phosphatase 70, Total Bilirubin 0.1 L, Total Protein 6.4, Albumin 2.0 L Vital Signs Date Time Temp Pulse Resp B/P (MAP) Pulse Ox O2 Delivery O2 Flow Rate FiO2 04/22/17 12:00 Room Air 04/22/17 10:27 80 188/80 04/22/17 08:00 98.7 18 93 04/21/17 23:59 1.0 I&O- Last 24 Hours up to 6 AM 04/23/17 06:00 Intake Total 1060 ml Output Total 500 ml Balance 560 ml INA DÍAZ MD Apr 22, 2017 13:43
[2017-04-22] MEDS: hydrALAZINE INJ 20 MG/ML VIAL IV SCH ×3 (14:00→21:24)
[2017-04-22] MEDS: cefTRIAXone SOD 1 GM in D5W MINI-BAG PLUS 50 ML IV SCH (14:17)
--- NOTE | 2017-04-22 15:06 | IPN ---
DATE: 04/22/2017 Mrs. Madison is seen this morning on her bedside. She was admitted to [facility] on April 20 with altered mental status and had acute renal failure. She is currently being treated for bronchopneumonia. Nephrology consultation was requested for acute renal failure, which is gradually improving. Apparently, the patient was dehydrated at the time of admission and her kidney function is now improving with IV fluid hydration and treatment of her pneumonia. She still seems to be slightly confused. PHYSICAL EXAMINATION: Temperature 97.8 degrees Fahrenheit, heart rate 78 per minute and respiratory rate 18 per minute. Blood pressure 115/58 mmHg and oxygen saturation 91% on room air. Head is atraumatic. Neck is supple and without jugular venous distention (JVD) or thyroid enlargement. Pupils equal and reactive to light and sclera is anicteric. Ears, nose and throat are unremarkable. Heart exam reveals regular S1, S2. Lungs have scattered rhonchi. Abdomen is soft and nontender and without a palpable organomegaly. Bowel sounds are normal. Extremities have no cyanosis or clubbing. Skin has no rash or ulcers. Neurologically, she seems to be slightly confused. She is moving all her extremities and has no focal deficit. Today's labs show sodium level 142 and potassium 4.0. CO2 is 18 and chloride 113. BUN 38 and creatinine 2.1. WBC count is 8.0, hemoglobin 10.1 and hematocrit 30. PROBLEMS: 1. Acute renal failure, most likely related to dehydration and pneumonia. The patient is currently improving and I recommend to continue with IV fluid hydration. Renal function will be checked again tomorrow morning. 2. Metabolic acidosis. She has only mild metabolic acidosis, which is probably related to acute renal failure and is likely to improve as her kidney function is improving. We will hold off on sodium bicarbonate supplement at this point. 3. Pneumonia. The patient seems to be clinically improving. She remains on antibiotics and bronchodilator nebulizers. 4, Shortness of breath, most likely related to COPD / bronchospasm. She is improving and remains on steroids and bronchodilators. 5. Hypertension. Blood pressure control has improved significantly. No changes in antihypertensives are being made. 6. Anemia. Her anemia is stable over the last 24 hours. No intervention is indicated. MTDD
[2017-04-22] MEDS ORDERED: LEVEMIR (INSULIN DETEMIR) 1 UNITS/0.01ML SC SCH (21:00)
[2017-04-23] VITALS (7 sets, daily range): BP systolic 149–182; BP diastolic 66–90
[2017-04-23] MEDS: IPRATROPIUM 0.5MG/ALBUTEROL 2.5MG INH SOL UD 3ML (DUONEB)(J7620) NEB SCH ×3 (02:53→15:25)
[2017-04-23] MEDS: ADVAIR HFA 230/21MCG INHALER INH SCH ×3 (02:53→20:16)
[2017-04-23] MEDS: hydrALAZINE INJ 20 MG/ML VIAL IV SCH ×3 (03:51→09:51)
[2017-04-23] MEDS: NS 1,000 ML IV SCH (05:00)
[2017-04-23] MEDS: metroNIDAZOLE 500 MG in APPROPRIATE DILUENT 1 EA IV SCH ×3 (05:47→21:24)
[2017-04-23 06:34] LABS: ALBUMIN 2.3 GM/DL (3.2-5.2); ALBUMIN/GLOBULIN RATIO 0.55 (1.00-1.93); CALCIUM LEVEL 8.2 MG/DL (8.8-10.2); CREATININE FOR GFR 1.14 MG/DL (0.55-1.02); GLOMERULAR FILTRATION RATE 50.2 (>39); TOTAL PROTEIN 6.5 GM/DL (6.4-8.2)
[2017-04-23 06:44] LABS: POTASSIUM SERUM 3.1 MEQ/L (3.5-5.1)
[2017-04-23 06:45] LABS: BILIRUBIN,TOTAL 0.2 MG/DL (0.2-1.0)
[2017-04-23 06:51] LABS: BASO % 0.2 % (0.0-1.0); EOS % 0.3 % (0.0-3.0); LARGE UNSTAINED CELL # 0.3 K/mm3 (0.0-0.4); LARGE UNSTAINED CELL % 1.9 % (0.0-4.0); LYMPH # 1.4 K/mm3 (1.5-4.5); LYMPH % 9.6 % (24.0-44.0); MEAN CORPUSCULAR HGB CONC 34.4 g/dl (32.0-36.5); MEAN CORPUSCULAR VOLUME 81.3 fl (80.0-96.0); MONO # 1.1 K/mm3 (0.0-0.8); NEUTROPHILS # 11.3 K/mm3 (1.8-7.7); NEUTROPHILS % 80.1 % (36.0-66.0); PLATELET COUNT, AUTOMATED 645 k/mm3 (150-450); RED CELL DISTRIBUTION WIDTH 15.1 % (11.5-14.5); WHITE BLOOD COUNT 14.1 K/mm3 (4.0-10.0)
[2017-04-23] MEDS: TIOTROPIUM INHALER/CAPSULE (SPIRIVA) INH SCH (07:18)
[2017-04-23] MEDS: HumaLOG INSULIN (NovoLOG) PER UNIT SC SCH ×4 (07:27→21:18)
[2017-04-23] MEDS: LEVEMIR (INSULIN DETEMIR) 1 UNITS/0.01ML SC SCH ×2 (08:35→21:17)
[2017-04-23] MEDS: HEPARIN SOD (PORCINE) 5000 UNITS/ML VIAL SC SCH ×2 (08:36→21:15)
[2017-04-23] MEDS: SENOKOT S TAB PO SCH ×2 (08:36→21:16)
[2017-04-23] MEDS: FLUoxetine 20 MG CAP PO SCH (08:36)
[2017-04-23] MEDS: predniSONE 10 MG TAB PO SCH (08:36)
[2017-04-23] MEDS: LETROZOLE 2.5 MG TAB PO SCH (08:37)
[2017-04-23] MEDS: AZITHROMYCIN 250 MG TAB PO SCH (08:37)
[2017-04-23] MEDS ORDERED: POTASSIUM CHLORIDE 10 MEQ SR TABLET PO ONE ×2 (08:45→17:00)
[2017-04-23] MEDS ORDERED: amLODIPine 5 MG TAB PO SCH ×3 (09:00)
[2017-04-23] MEDS: D5W/0.45% SODIUM CHLORIDE 1,000 ML IV SCH (09:51)
[2017-04-23] MEDS ORDERED: amLODIPine 5 MG TAB PO ONE (10:00)
[2017-04-23] MEDS: **hydrALAZINE HCL** 25 MG TAB PO SCH ×2 (12:02→17:33)
--- NOTE | 2017-04-23 14:01 | IPNPDOC ---
Text Note Date of Service The patient was seen on 04/23/17. NOTE Subjective: Fells well. Looking forward to go home soon. No CP/SOB/Palpitations. Objective: Vitals: (see below) General: No acute distress, laying comfortably in bed. HEENT: Moist mucous membranes. Neck: No JVD or lymphadenopathy Cardiac: RRR, No murmurs Pulm: Clear to auscultation b/l. Abd: NT/ND + BS Ext: No edema or cyanosis AAO x 3. Moving ext, following commands. Labs (see below) Images: CT Abd/pelvis 04/20/17 IMPRESSION: Enterocolitis. No perforation or abscess formation. No free fluid. No evidence of pneumatosis intestinalis. Cholecystectomy. Hepatomegaly. CT Chest 04/20/17 IMPRESSION: Multifocal airspace disease. Possibly bronchopneumonia. Early cavitation and a lingular consolidation. Clinical evaluation and followup are suggested to exclude underlying neoplastic pathology. Bronchiolitis. Emphysema. Assessment/Plan 1. Sepsis secondary to community-acquired pneumonia as well as colitis- improving. On azithromycin/Rocephin for CAP, Rocephin and Flagyl for colitis. Hemodynamically stable. Improving. 2. Metabolic encephalopathy secondary to #1-resolved. No focal deficits 3. Acute COPD exacerbation- patient states she currently smokes 1 pack per day. Emphysematous changes on CAT scan. No formal PFTs outpatient. Will need close outpatient pulmonary follow-up. On nebs, steroids. 4. Acute renal failure- likely secondary to dehydration, as well as sepsis. Improving on IV fluids. Continue IV fluids. Avoid nephrotoxins. d/c prado 5. Hypernatremia- mild - IVF changed to D5 1/2NS. 6. Non-anion gap metabolic acidosis likely secondary to renal failure- continue IV fluids and monitor for improvement. 7. Diabetes mellitus- sliding scale insulin.Levemir started, and uptitrated. steroids decreased. 8. HTN - uncontrolled. Started on Amlodipine, and hydralazine prn. 9. Hypokalemia - replaced. DVT prophy: Heparin subcutaneous Prognosis guarded. VS,Fishbone, I+O VS, Fishbone, I+O Laboratory Tests 04/23/17 04:54 Red Blood Count 3.88 L, Mean Corpuscular Volume 81.3, Mean Corpuscular Hemoglobin 28.0, Mean Corpuscular Hemoglobin Concent 34.4, Red Cell Distribution Width 15.1 H, Neutrophils (%) (Auto) 80.1 H, Lymphocytes (%) (Auto ) 9.6 L, Monocytes (%) (Auto) 8.0 H, Eosinophils (%) (Auto) 0.3, Basophils (%) ( Auto) 0.2, Neutrophils # (Auto) 11.3 H, Lymphocytes # (Auto) 1.4 L, Monocytes # (Auto) 1.1 H, Eosinophils # (Auto) 0.0, Basophils # (Auto) 0.0, Calcium Level 8.2 L, Aspartate Amino Transf (AST/SGOT) 10 L, Alanine Aminotransferase (ALT/ SGPT) 9 L, Alkaline Phosphatase 74, Total Bilirubin 0.2 #, Total Protein 6.5, Albumin 2.3 L Vital Signs Date Time Temp Pulse Resp B/P (MAP) Pulse Ox O2 Delivery O2 Flow Rate FiO2 04/23/17 12:02 182/78 04/23/17 12:00 98.9 106 18 96 Room Air 04/21/17 23:59 1.0 I&O- Last 24 Hours up to 6 AM 04/24/17 06:00 Intake Total 1380 ml Output Total 400 ml Balance 980 ml INA DÍAZ MD Apr 23, 2017 14:01
[2017-04-23] MEDS: cefTRIAXone SOD 1 GM in D5W MINI-BAG PLUS 50 ML IV SCH (14:41)
--- NOTE | 2017-04-23 16:42 | IPN ---
DATE: 04/23/2017 Ms. Madison is seen this morning on her bedside. She is feeling slightly better today and continues to have some cough. She denies any fever or chills. The patient denies any nausea, vomiting or diarrhea. PHYSICAL EXAMINATION: Temperature 97.3 degrees Fahrenheit, heart rate 60 per minute. Respiratory rate is 18 per minute and blood pressure 156/78 mmHg. Oxygen saturation is 94% on room air. Head is atraumatic. Neck is supple and without JVD or thyroid enlargement. Pupils equal and reactive to light and sclerae is anicteric. Ears, nose and throat are unremarkable. Heart exam reveals tachycardia. Lungs have scattered rhonchi. Abdomen soft and nontender and without a palpable organomegaly. Extremities without any cyanosis or clubbing. Neurologically she seems to be fully alert, awake and oriented. Today's labs show WBC count 14.1, hemoglobin 10.9 and hematocrit 31.6. Platelets are 645. Sodium is 149 and potassium 3.1. BUN 26 and creatinine 1.14. PROBLEM: 1. Acute renal failure. The patient is improving nicely and has good urine output. I suggest to continue with IV fluid for next 24 hours. Oral intake has improved and I feel that after 24 hours her IV fluid can be stopped. 2. Hypernatremia, most likely related to IV fluids given and now it has been changed to half-normal saline which is appropriate. Electrolytes should be checked again tomorrow morning. 3. Hypokalemia. This is nutritional and likely to improve. The patient received one dose of potassium chloride 40 mEq this morning. I will give her one more dose of potassium chloride 20 mEq later in the afternoon and recheck her electrolytes tomorrow. 4. COPD. The patient has been on steroids and nebulizers and inhalers. Her condition has improved significantly. I suggest to taper her steroids relatively quickly. 5. Pneumonia. She remains on IV antibiotics including ceftriaxone and metronidazole. She is also receiving azithromycin 500 mg daily. A followup chest x-ray is recommended. MTDD
--- NOTE | 2017-04-23 17:39 | ECGEPIP ---
Stationary ECG Study [facility] Test Date: 2017-04-23 Pat Name: KEVYN JOHNSON Department: Room: [place] [address] Gender: F Director [employer]iance: ZACK : [id number] Requested By: INA DÍAZ Order Number: [id number] Reading MD: Sarthak Ralph Measurements Intervals [place] Rate: 112 P: 68 OK: 173 QRS: 64 QRSD: 96 T: 26 QT: 312 QTc: 428 Interpretive Statements Sinus tachycardia Anteroseptal DE, age indeterminate Nonspecific ST-T wave abnormalities Consider LVH Comparison tracing not on file Electronically Signed On 04-23-2017 17:38:48 EDT by Sarthak Ralph
[2017-04-24] VITALS (7 sets, daily range): BP systolic 144–190; BP diastolic 64–80
[2017-04-24] MEDS: IPRATROPIUM 0.5MG/ALBUTEROL 2.5MG INH SOL UD 3ML (DUONEB)(J7620) NEB SCH ×3 (00:05→15:41)
[2017-04-24] MEDS: **hydrALAZINE HCL** 25 MG TAB PO SCH ×5 (00:21→23:42)
[2017-04-24] MEDS: D5W/0.45% SODIUM CHLORIDE 1,000 ML IV SCH (00:23)
[2017-04-24] MEDS: ACETAMINOPHEN TAB 650MG DOSE (2X325MG) PO PRN (00:27)
[2017-04-24 05:22] LABS: BASO % 0.1 % (0.0-1.0); EOS # 0.1 K/mm3 (0.0-0.50); EOS % 0.6 % (0.0-3.0); LARGE UNSTAINED CELL # 0.2 K/mm3 (0.0-0.4); LYMPH # 1.3 K/mm3 (1.5-4.5); LYMPH % 10.6 % (24.0-44.0); MEAN CORPUSCULAR HEMOGLOBIN 28.2 pg (27.0-33.0); MEAN CORPUSCULAR HGB CONC 35.1 g/dl (32.0-36.5); MEAN CORPUSCULAR VOLUME 80.6 fl (80.0-96.0); MONO # 0.9 K/mm3 (0.0-0.8); MONO % 7.6 % (0.0-5.0); NEUTROPHILS # 9.6 K/mm3 (1.8-7.7); NEUTROPHILS % 79.1 % (36.0-66.0); PLATELET COUNT, AUTOMATED 624 k/mm3 (150-450); RED CELL DISTRIBUTION WIDTH 15.2 % (11.5-14.5); WHITE BLOOD COUNT 12.2 K/mm3 (4.0-10.0)
[2017-04-24 05:47] LABS: ALBUMIN 2.2 GM/DL (3.2-5.2); ALBUMIN/GLOBULIN RATIO 0.55 (1.00-1.93); ALKALINE PHOSPHATASE 71 U/L (45-117); ALT/SGPT 9 U/L (12-78); ANION GAP 8 MEQ/L (8-16); AST/SGOT 7 U/L (15-37); BILIRUBIN,TOTAL 0.3 MG/DL (0.2-1.0); BLOOD UREA NITROGEN 15 MG/DL (7-18); CALCIUM LEVEL 8.3 MG/DL (8.8-10.2); CARBON DIOXIDE LEVEL 24 MEQ/L (21-32); CHLORIDE LEVEL 107 MEQ/L (98-107); CREATININE FOR GFR 0.93 MG/DL (0.55-1.02); GLOMERULAR FILTRATION RATE > 60.0 (>39); GLUCOSE, FASTING 177 MG/DL (83-110); POTASSIUM SERUM 2.7 MEQ/L (3.5-5.1); SODIUM LEVEL 139 MEQ/L (136-145); TOTAL PROTEIN 6.2 GM/DL (6.4-8.2)
[2017-04-24] MEDS: metroNIDAZOLE 500 MG in APPROPRIATE DILUENT 1 EA IV SCH ×2 (05:54→13:23)
[2017-04-24] MEDS ORDERED: POTASSIUM CHLORIDE INJ 40 MEQ in D5W/0.45% SODIUM CHLORIDE 1,000 ML IV SCH (06:07)
[2017-04-24] MEDS ORDERED: POTASSIUM CHLORIDE 10 MEQ SR TABLET PO ONE (06:30)
[2017-04-24] MEDS: KCL 40MEQ IN D5/0.45NS 1000ML 1,000 ML IV SCH ×2 (06:46→23:40)
[2017-04-24] MEDS: ADVAIR HFA 230/21MCG INHALER INH SCH ×2 (07:13→21:05)
[2017-04-24] MEDS: TIOTROPIUM INHALER/CAPSULE (SPIRIVA) INH SCH (07:13)
[2017-04-24] MEDS: HumaLOG INSULIN (NovoLOG) PER UNIT SC SCH ×4 (07:30→20:24)
[2017-04-24] MEDS: ONDANSETRON 4MG/2ML VIAL (J2405) IV PRN (07:31)
[2017-04-24] MEDS: MAG SULF 1GM/100ML (MAG RUN) 1 GM in APPROPRIATE DILUENT 1 EA IV SCH ×3 (08:29→11:04)
[2017-04-24] MEDS: SENOKOT S TAB PO SCH ×2 (09:00→20:34)
[2017-04-24] MEDS: LETROZOLE 2.5 MG TAB PO SCH (09:29)
[2017-04-24] MEDS: AZITHROMYCIN 250 MG TAB PO SCH (09:30)
[2017-04-24] MEDS: amLODIPine 10 MG TAB PO SCH (09:30)
[2017-04-24] MEDS: FLUoxetine 20 MG CAP PO SCH (09:31)
[2017-04-24] MEDS: HEPARIN SOD (PORCINE) 5000 UNITS/ML VIAL SC SCH ×2 (09:37→20:33)
[2017-04-24] MEDS ORDERED: PANTOPRAZOLE 40MG INJ (PROTONIX) (C9113) IV SCH (10:00)
[2017-04-24] MEDS: predniSONE 10 MG TAB PO SCH (10:52)
[2017-04-24] MEDS: POTASSIUM CHLORIDE 10 MEQ SR TABLET PO SCH ×2 (10:54→20:34)
--- NOTE | 2017-04-24 11:04 | IPN ---
DATE OF SERVICE: 04/24/2017 Ms. Madisno is seen this morning on her bedside. She is not feeling well today and reports nausea. Apparently she received a dose of potassium chloride by mouth this morning which made her sick to stomach. She denies any fever or chills. She is currently receiving IV fluid containing potassium chloride. She was initially seen by nephrology for acute renal failure which was felt to be related to dehydration and has been improving. Today her BUN is down to 15 and creatinine 0.93. Her sodium is 139 and potassium is 2.7. She is being treated for bronchopneumonia with IV antibiotics. From renal stand point, patient is doing very well and kidney function has improved to normal range. Her potassium is low and it has been replaced by the hospitalist service. At this point, I am not contributing much to her care and she did not even need further nephrology care. I am signing off her case. Please do not hesitate to call me should you need any further assistance.
[2017-04-24] MEDS: LEVEMIR (INSULIN DETEMIR) 1 UNITS/0.01ML SC SCH ×2 (11:05→20:33)
--- NOTE | 2017-04-24 16:10 | IPNPDOC ---
Text Note Date of Service The patient was seen on 04/24/17. NOTE Subjective: Fells well. Tolerating Diet. No CP/SOB/Palpitations. Objective: Vitals: (see below) General: No acute distress, laying comfortably in bed. HEENT: Moist mucous membranes. Neck: No JVD or lymphadenopathy Cardiac: RRR, No murmurs Pulm: Clear to auscultation b/l. Abd: NT/ND + BS Ext: No edema or cyanosis AAO x 3. Moving ext, following commands. Labs (see below) Images: CT Abd/pelvis 04/20/17 IMPRESSION: Enterocolitis. No perforation or abscess formation. No free fluid. No evidence of pneumatosis intestinalis. Cholecystectomy. Hepatomegaly. CT Chest 04/20/17 IMPRESSION: Multifocal airspace disease. Possibly bronchopneumonia. Early cavitation and a lingular consolidation. Clinical evaluation and followup are suggested to exclude underlying neoplastic pathology. Bronchiolitis. Emphysema. Assessment/Plan 1. Sepsis secondary to community-acquired pneumonia as well as colitis- improving. On levaquin for CAP, levaquin/Flagyl for colitis. Hemodynamically stable. Improving. 2. Metabolic encephalopathy secondary to #1-resolved. No focal deficits 3. Acute COPD exacerbation- patient states she currently smokes 1 pack per day. Emphysematous changes on CAT scan. No formal PFTs outpatient. Will need close outpatient pulmonary follow-up. On nebs, steroids. 4. Acute renal failure- likely secondary to dehydration, as well as sepsis. Improving on IV fluids. Continue IV fluids. Avoid nephrotoxins. d/c prado 5. Hypernatremia- mild - IVF changed to D5 1/2NS. 6. Non-anion gap metabolic acidosis likely secondary to renal failure- continue IV fluids and monitor for improvement. 7. Diabetes mellitus- sliding scale insulin.Levemir started, and uptitrated. steroids decreased. 8. HTN - uncontrolled. Started on Amlodipine, and hydralazine prn. 9. Hypokalemia - replaced. DVT prophy: Heparin subcutaneous Prognosis guarded. VS,Fishbone, I+O VS, Fishbone, I+O Laboratory Tests 04/24/17 04:33 Red Blood Count 3.77 L, Mean Corpuscular Volume 80.6, Mean Corpuscular Hemoglobin 28.2, Mean Corpuscular Hemoglobin Concent 35.1, Red Cell Distribution Width 15.2 H, Neutrophils (%) (Auto) 79.1 H, Lymphocytes (%) (Auto ) 10.6 L, Monocytes (%) (Auto) 7.6 H, Eosinophils (%) (Auto) 0.6, Basophils (%) (Auto) 0.1, Neutrophils # (Auto) 9.6 H, Lymphocytes # (Auto) 1.3 L, Monocytes # (Auto) 0.9 H, Eosinophils # (Auto) 0.1, Basophils # (Auto) 0.0, Calcium Level 8.3 L, Aspartate Amino Transf (AST/SGOT) 7 L, Alanine Aminotransferase (ALT/SGPT ) 9 L, Alkaline Phosphatase 71, Total Bilirubin 0.3, Total Protein 6.2 L, Albumin 2.2 L 04/24/17 15:09 Vital Signs Date Time Temp Pulse Resp B/P (MAP) Pulse Ox O2 Delivery O2 Flow Rate FiO2 04/24/17 12:22 148/64 04/24/17 11:41 97.8 88 18 96 Room Air 04/21/17 23:59 1.0 I&O- Last 24 Hours up to 6 AM 04/25/17 06:00 Intake Total 840 ml Output Total 2150 ml Balance -1310 ml INA DÍAZ MD Apr 24, 2017 16:09
[2017-04-24] MEDS: LevoFLOXacin 250 MG TABLET PO SCH (17:46)
[2017-04-24] MEDS ORDERED: CIPROFLOXACIN 500 MG TAB PO SCH (18:00)
[2017-04-24] MEDS: zolPIDEM TARTRATE 5 MG TAB PO SCH (20:34)
[2017-04-24] MEDS: metroNIDAZOLE (FLAGYL) 500 MG TAB PO SCH (21:35)
[2017-04-25] VITALS (8 sets, daily range): BP systolic 139–196; BP diastolic 73–106
[2017-04-25] MEDS: ACETAMINOPHEN TAB 650MG DOSE (2X325MG) PO PRN ×2 (02:20→20:31)
[2017-04-25] MEDS: **hydrALAZINE HCL** 25 MG TAB PO SCH ×2 (05:05→13:29)
[2017-04-25] MEDS: metroNIDAZOLE (FLAGYL) 500 MG TAB PO SCH ×3 (05:05→21:24)
[2017-04-25 05:40] LABS: BASO % 0.3 % (0.0-1.0); EOS # 0.1 10^3/uL (0.0-0.50); EOS % 1.2 % (0.0-3.0); IMMATURE GRANULOCYTE % 2.9 % (0-0); LYMPH # 1.8 10^3/uL (1.5-4.5); LYMPH % 16.2 % (24.0-44.0); MEAN CORPUSCULAR HEMOGLOBIN 26.7 pg (27.0-33.0); MONO # 0.9 10^3/uL (0.0-0.8); MONO % 8.2 % (0.0-5.0); NEUTROPHILS # 7.9 10^3/uL (1.8-7.7); NEUTROPHILS % 71.2 % (36.0-66.0); PLATELET COUNT, AUTOMATED 644 10^3/uL (150-450); RED CELL DISTRIBUTION WIDTH 16.2 % (11.5-14.5); WHITE BLOOD COUNT 11.1 10^3/uL (4.0-10.0)
[2017-04-25 06:06] LABS: ALBUMIN 2.3 GM/DL (3.2-5.2); ALBUMIN/GLOBULIN RATIO 0.58 (1.00-1.93); ALKALINE PHOSPHATASE 62 U/L (45-117); ALT/SGPT 9 U/L (12-78); ANION GAP 7 MEQ/L (8-16); AST/SGOT 7 U/L (15-37); BILIRUBIN,TOTAL 0.2 MG/DL (0.2-1.0); BLOOD UREA NITROGEN 10 MG/DL (7-18); CALCIUM LEVEL 8.8 MG/DL (8.8-10.2); CARBON DIOXIDE LEVEL 24 MEQ/L (21-32); CHLORIDE LEVEL 108 MEQ/L (98-107); CREATININE FOR GFR 0.74 MG/DL (0.55-1.02); GLOMERULAR FILTRATION RATE > 60.0 (>39); GLUCOSE, FASTING 86 MG/DL (83-110); POTASSIUM SERUM 4.2 MEQ/L (3.5-5.1); SODIUM LEVEL 139 MEQ/L (136-145); TOTAL PROTEIN 6.3 GM/DL (6.4-8.2)
[2017-04-25] MEDS: HumaLOG INSULIN (NovoLOG) PER UNIT SC SCH ×4 (07:20→21:00)
[2017-04-25] MEDS: TIOTROPIUM INHALER/CAPSULE (SPIRIVA) INH SCH ×2 (07:32→07:35)
[2017-04-25] MEDS: IPRATROPIUM 0.5MG/ALBUTEROL 2.5MG INH SOL UD 3ML (DUONEB)(J7620) NEB SCH ×4 (07:32→23:34)
[2017-04-25] MEDS: ADVAIR HFA 230/21MCG INHALER INH SCH ×3 (07:33→20:29)
[2017-04-25] MEDS: LEVEMIR (INSULIN DETEMIR) 1 UNITS/0.01ML SC SCH ×2 (08:30→21:00)
[2017-04-25] MEDS: amLODIPine 10 MG TAB PO SCH (08:37)
[2017-04-25] MEDS: POTASSIUM CHLORIDE 10 MEQ SR TABLET PO SCH ×2 (08:37→21:23)
[2017-04-25] MEDS: LETROZOLE 2.5 MG TAB PO SCH (08:37)
[2017-04-25] MEDS: predniSONE 10 MG TAB PO SCH (08:37)
[2017-04-25] MEDS: HEPARIN SOD (PORCINE) 5000 UNITS/ML VIAL SC SCH ×2 (08:37→21:23)
[2017-04-25] MEDS: FLUoxetine 20 MG CAP PO SCH (08:37)
[2017-04-25] MEDS: SENOKOT S TAB PO SCH ×2 (08:37→21:24)
[2017-04-25] MEDS: PANTOPRAZOLE 40MG TAB (PROTONIX) PO SCH (11:06)
--- NOTE | 2017-04-25 15:33 | IPNPDOC ---
Text Note Date of Service The patient was seen on 04/25/17. NOTE Subjective: Patient is a 72 year old female with a PMHx of HTN, DLP, CAD (Hx of [place] ), DM2, Breast CA, Cervical CA, and Depression who presented as a transfer from [facility] for AMS thought to be 2/2 Colitis and PNA. Patient was admitted and started on Levaquin and Flagyl for coverage. Patient was seen and examined at the bedside. Her mentation has not quite improved from admission. She is slow to respond and does not appear fully oriented. Objective: Vitals (See below) General: Lying in bed, no acute distress, comfortable, Oriented to person HEENT: NC, AT CVS: RRR, +S1S2 Lungs: Fair air entry b/l, -w/r/r Abdomen: Soft, ND, NT, Extremities: - Edema, - Calf tenderness Assessment and plan: Sepsis 2/2 CAP and Colitis - Presented as a transfer from [facility] - XR Chest 04/20: Interstitial infiltrates, focal alveolar infiltrate inferiorly in LL - CT chest 04/20: multifocal airspace disease, possibly bronchopenumonia, early cavitation and lingular consolidation - f/u suggested to exclude neoplastic pathology, bronchiolitis and emphysema - CT abdomen 04/20: Enterocolitis - c/w Levaquin and Flagyl (Antibiotic day #5) Acute Metabolic Encephalopathy - possibly 2/2 Sepsis, possibly underlying Dementia (progressive) - Was noted to be functioning well outside the hospital, arrive to [place] area to provide assistance to friend's family who is in Hospice, is able to drive - Currently not fully oriented and slow to respond - No focal neurologic deficits noted - Will get CT head to r/o acute pathology Emphysema - Does not have any complaints of shortness of breath - No wheezing on physical exam - c/w Spiriva and Duoneb PRN - Will taper Prednisone PO s/p Acute kidney injury - s/p IV fluids s/p Hypernatremia s/p NAG metabolic acidosis s/p Hypokalemia HTN - BP still elevated - c/w Amlodipine and Hydralazine - Will increase dose of Hydralazine PO DM2 - c/w ISS and Levemir GERD - c/w Protonix DVT prophylaxis - c/w Heparin VS,Fishbone, I+O VS, Fishbone, I+O Laboratory Tests 04/25/17 05:15 Red Blood Count 3.89 L, Mean Corpuscular Volume 81.0, Mean Corpuscular Hemoglobin 26.7 L, Mean Corpuscular Hemoglobin Concent 33.0, Red Cell Distribution Width 16.2 H, Neutrophils (%) (Auto) 71.2 H, Lymphocytes (%) (Auto ) 16.2 L, Monocytes (%) (Auto) 8.2 H, Eosinophils (%) (Auto) 1.2, Basophils (%) (Auto) 0.3, Neutrophils # (Auto) 7.9 H, Lymphocytes # (Auto) 1.8, Monocytes # ( Auto) 0.9 H, Eosinophils # (Auto) 0.1, Basophils # (Auto) 0.0, Calcium Level 8.8 , Aspartate Amino Transf (AST/SGOT) 7 L, Alanine Aminotransferase (ALT/SGPT) 9 L , Alkaline Phosphatase 62, Total Bilirubin 0.2, Total Protein 6.3 L, Albumin 2.3 L Vital Signs Date Time Temp Pulse Resp B/P (MAP) Pulse Ox O2 Delivery O2 Flow Rate FiO2 04/25/17 12:00 99.1 97 20 196/93 (127) 96 Room Air 04/21/17 23:59 1.0 I&O- Last 24 Hours up to 6 AM 04/26/17 06:00 Intake Total 360 ml Balance 360 ml GELA COOK MD Apr 25, 2017 15:33
--- NOTE | 2017-04-25 15:52 | REP ---
CT Head without contrast HISTORY: Rule out bleed COMPARISON: None Areas of decreased attenuation are present in the periventricular white matter. This represents small-vessel ischemic disease. There is no intraparenchymal hemorrhage, acute infarct, mass or midline shift. The ventricular system and cortical sulci are dilated consistent with minimal volume loss. There is no extra cerebral collection. There is no fracture. The visualized sinuses are clear. IMPRESSION: 1. Small vessel ischemic disease. 2. Minimal volume loss. Signed by Aleks Gutierrez MD 04/25/2017 03:43 P
[2017-04-25] MEDS: **hydrALAZINE** 50 MG TAB PO SCH ×2 (17:29→23:59)
[2017-04-25] MEDS: LevoFLOXacin 250 MG TABLET PO SCH (18:30)
[2017-04-25] MEDS: zolPIDEM TARTRATE 5 MG TAB PO SCH (21:23)
[2017-04-26] VITALS (7 sets, daily range): BP systolic 129–175; BP diastolic 61–82
[2017-04-26] MEDS: metroNIDAZOLE (FLAGYL) 500 MG TAB PO SCH ×3 (05:03→21:19)
[2017-04-26] MEDS: **hydrALAZINE** 50 MG TAB PO SCH ×2 (05:03→12:00)
[2017-04-26 05:48] LABS: BASO # 0.1 10^3/uL (0.0-0.2); BASO % 0.6 % (0.0-1.0); EOS # 0.1 10^3/uL (0.0-0.50); EOS % 1.3 % (0.0-3.0); LYMPH # 1.9 10^3/uL (1.5-4.5); MEAN CORPUSCULAR HGB CONC 33.1 g/dl (32.0-36.5); MEAN CORPUSCULAR VOLUME 81.5 fl (80.0-96.0); MONO # 0.9 10^3/uL (0.0-0.8); MONO % 8.1 % (0.0-5.0); NEUTROPHILS # 7.1 10^3/uL (1.8-7.7); PLATELET COUNT, AUTOMATED 726 10^3/uL (150-450); RED CELL DISTRIBUTION WIDTH 16.2 % (11.5-14.5); WHITE BLOOD COUNT 10.6 10^3/uL (4.0-10.0)
[2017-04-26 06:13] LABS: ALBUMIN 2.4 GM/DL (3.2-5.2); ALBUMIN/GLOBULIN RATIO 0.55 (1.00-1.93); ALKALINE PHOSPHATASE 68 U/L (45-117); ALT/SGPT 9 U/L (12-78); ANION GAP 11 MEQ/L (8-16); AST/SGOT 6 U/L (15-37); BILIRUBIN,TOTAL 0.4 MG/DL (0.2-1.0); BLOOD UREA NITROGEN 15 MG/DL (7-18); CALCIUM LEVEL 8.8 MG/DL (8.8-10.2); CARBON DIOXIDE LEVEL 21 MEQ/L (21-32); CHLORIDE LEVEL 107 MEQ/L (98-107); CREATININE FOR GFR 0.81 MG/DL (0.55-1.02); GLOMERULAR FILTRATION RATE > 60.0 (>39); GLUCOSE, FASTING 173 MG/DL (83-110); SODIUM LEVEL 139 MEQ/L (136-145); TOTAL PROTEIN 6.8 GM/DL (6.4-8.2)
[2017-04-26] MEDS: ADVAIR HFA 230/21MCG INHALER INH SCH ×2 (07:58→21:13)
[2017-04-26] MEDS: TIOTROPIUM INHALER/CAPSULE (SPIRIVA) INH SCH (07:58)
[2017-04-26] MEDS: IPRATROPIUM 0.5MG/ALBUTEROL 2.5MG INH SOL UD 3ML (DUONEB)(J7620) NEB SCH ×2 (07:59→15:18)
[2017-04-26] MEDS: LETROZOLE 2.5 MG TAB PO SCH (08:37)
[2017-04-26] MEDS: FLUoxetine 20 MG CAP PO SCH (08:37)
[2017-04-26] MEDS: POTASSIUM CHLORIDE 10 MEQ SR TABLET PO SCH ×2 (08:37→21:17)
[2017-04-26] MEDS: amLODIPine 10 MG TAB PO SCH (08:38)
[2017-04-26] MEDS: HumaLOG INSULIN (NovoLOG) PER UNIT SC SCH ×4 (08:38→21:00)
[2017-04-26] MEDS: LEVEMIR (INSULIN DETEMIR) 1 UNITS/0.01ML SC SCH ×2 (08:38→21:00)
[2017-04-26] MEDS: PANTOPRAZOLE 40MG TAB (PROTONIX) PO SCH (08:38)
[2017-04-26] MEDS: predniSONE 20 MG TAB PO SCH (08:38)
[2017-04-26] MEDS: HEPARIN SOD (PORCINE) 5000 UNITS/ML VIAL SC SCH ×2 (08:38→21:20)
[2017-04-26] MEDS: SENOKOT S TAB PO SCH ×2 (08:39→21:00)
--- NOTE | 2017-04-26 11:40 | IPNPDOC ---
Text Note Date of Service The patient was seen on 04/26/17. NOTE Subjective: Patient is a 72 year old female with a PMHx of HTN, DLP, CAD (Hx of [place] ), DM2, Breast CA, Cervical CA, and Depression who presented as a transfer from [facility] for AMS thought to be 2/2 Colitis and PNA. Patient was admitted and started on Levaquin and Flagyl for coverage. Patient was seen and examined at the bedside. Currently she is fully alert and oriented x3. She is aware of why she is in the hospital. Physical therapy will start today. Objective: Vitals (See below) General: Lying in bed, no acute distress, comfortable, AAOx3 HEENT: NC, AT CVS: RRR, +S1S2 Lungs: Fair air entry b/l, -w/r/r Abdomen: Soft, ND, NT, Extremities: - Edema, - Calf tenderness Assessment and plan: Sepsis 2/2 CAP and Colitis - Presented as a transfer from [facility] - XR Chest 04/20: Interstitial infiltrates, focal alveolar infiltrate inferiorly in LL - CT chest 04/20: multifocal airspace disease, possibly bronchopenumonia, early cavitation and lingular consolidation - f/u suggested to exclude neoplastic pathology, bronchiolitis and emphysema - CT abdomen 04/20: Enterocolitis - c/w Levaquin and Flagyl (Antibiotic day #6) s/p Acute Metabolic Encephalopathy - possibly 2/2 Sepsis, possibly underlying Dementia (progressive), possibly 2.2 - Was noted to be functioning well outside the hospital, arrive to [facility] to provide assistance to friend's family who is in Hospice, is able to drive - Currently not fully oriented and slow to respond - No focal neurologic deficits noted - CT head 04/25: small vessel ischemic disease, minimal volume loss - Will continue to monitor now Emphysema - Does not have any complaints of shortness of breath - No wheezing on physical exam - c/w Spiriva and Duoneb PRN - c/w Prednisone 20 s/p Acute kidney injury - s/p IV fluids s/p Hypernatremia s/p NAG metabolic acidosis s/p Hypokalemia HTN - BP still elevated - c/w Amlodipine 10 and Hydralazine 50 q6h DM2 - c/w ISS and Levemir GERD - c/w Protonix DVT prophylaxis - c/w Heparin Disposition: - Awaiting Physical therapy VS,[place], I+O VS, Kdbone, I+O Laboratory Tests 04/26/17 05:33 Red Blood Count 4.37, Mean Corpuscular Volume 81.5, Mean Corpuscular Hemoglobin 27.0, Mean Corpuscular Hemoglobin Concent 33.1, Red Cell Distribution Width 16.2 H, Neutrophils (%) (Auto) 67.0 H, Lymphocytes (%) (Auto) 18.0 L, Monocytes (%) (Auto) 8.1 H, Eosinophils (%) (Auto) 1.3, Basophils (%) (Auto) 0.6, Neutrophils # (Auto) 7.1, Lymphocytes # (Auto) 1.9, Monocytes # (Auto) 0.9 H, Eosinophils # (Auto) 0.1, Basophils # (Auto) 0.1, Calcium Level 8.8, Aspartate Amino Transf (AST/SGOT) 6 L, Alanine Aminotransferase (ALT/SGPT) 9 L, Alkaline Phosphatase 68, Total Bilirubin 0.4 #, Total Protein 6.8, Albumin 2.4 L Vital Signs Date Time Temp Pulse Resp B/P (MAP) Pulse Ox O2 Delivery O2 Flow Rate FiO2 04/26/17 08:38 94 160/82 04/26/17 07:45 98.4 20 96 Room Air 04/21/17 23:59 1.0 I&O- Last 24 Hours up to 6 AM 04/27/17 05:59 Intake Total 360 ml Output Total 300 ml Balance 60 ml GELA COOK MD Apr 26, 2017 11:34
[2017-04-26] MEDS: CARVedilol 6.25 MG TAB PO SCH ×2 (16:25→21:19)
[2017-04-26] MEDS: LevoFLOXacin 250 MG TABLET PO SCH (19:28)
[2017-04-26] MEDS: zolPIDEM TARTRATE 5 MG TAB PO SCH (21:18)
[2017-04-26] MEDS: ACETAMINOPHEN TAB 650MG DOSE (2X325MG) PO PRN (21:30)
[2017-04-26] MEDS: ONDANSETRON 4MG/2ML VIAL (J2405) IV PRN (22:32)
[2017-04-27 04:00] VITALS: BP 160/68
[2017-04-27] MEDS: metroNIDAZOLE (FLAGYL) 500 MG TAB PO SCH ×2 (05:22→13:32)
[2017-04-27 05:51] LABS: MEAN CORPUSCULAR HEMOGLOBIN 26.4 pg (27.0-33.0); MEAN CORPUSCULAR HGB CONC 32.4 g/dl (32.0-36.5); MEAN CORPUSCULAR VOLUME 81.5 fl (80.0-96.0); PLATELET COUNT, AUTOMATED 712 10^3/uL (150-450); WHITE BLOOD COUNT 10.6 10^3/uL (4.0-10.0)
[2017-04-27 05:52] LABS: ADD MANUAL DIFFER YES; DIFF SLIDE NUMBER 1
[2017-04-27 06:19] LABS: ALBUMIN 2.6 GM/DL (3.2-5.2); ALBUMIN/GLOBULIN RATIO 0.65 (1.00-1.93); ALKALINE PHOSPHATASE 66 U/L (45-117); ALT/SGPT 9 U/L (12-78); ANION GAP 8 MEQ/L (8-16); AST/SGOT 7 U/L (15-37); BILIRUBIN,TOTAL 0.3 MG/DL (0.2-1.0); BLOOD UREA NITROGEN 16 MG/DL (7-18); CALCIUM LEVEL 9.3 MG/DL (8.8-10.2); CARBON DIOXIDE LEVEL 23 MEQ/L (21-32); CHLORIDE LEVEL 105 MEQ/L (98-107); CREATININE FOR GFR 0.84 MG/DL (0.55-1.02); GLOMERULAR FILTRATION RATE > 60.0 (>39); GLUCOSE, FASTING 161 MG/DL (83-110); SODIUM LEVEL 136 MEQ/L (136-145); TOTAL PROTEIN 6.6 GM/DL (6.4-8.2)
[2017-04-27 06:24] LABS: POTASSIUM SERUM 5.2 MEQ/L (3.5-5.1)
[2017-04-27 06:34] LABS: BASOPHILS 1 % (0-4); EOSINOPHILS 3 % (0-5)
[2017-04-27] MEDS: TIOTROPIUM INHALER/CAPSULE (SPIRIVA) INH SCH (07:44)
[2017-04-27] MEDS: ADVAIR HFA 230/21MCG INHALER INH SCH (07:44)
[2017-04-27] MEDS: IPRATROPIUM 0.5MG/ALBUTEROL 2.5MG INH SOL UD 3ML (DUONEB)(J7620) NEB SCH ×3 (07:44→15:00)
[2017-04-27 07:45] VITALS: BP 171/80
[2017-04-27] MEDS ORDERED: CARVedilol 12.5 MG TAB PO SCH (09:00)
[2017-04-27] MEDS: HumaLOG INSULIN (NovoLOG) PER UNIT SC SCH ×2 (09:17→13:33)
[2017-04-27] MEDS: LEVEMIR (INSULIN DETEMIR) 1 UNITS/0.01ML SC SCH (09:18)
[2017-04-27 09:19] VITALS: BP 171/80
[2017-04-27] MEDS: LETROZOLE 2.5 MG TAB PO SCH (09:19)
[2017-04-27] MEDS: amLODIPine 10 MG TAB PO SCH (09:19)
[2017-04-27] MEDS: predniSONE 20 MG TAB PO SCH (09:19)
[2017-04-27] MEDS: PANTOPRAZOLE 40MG TAB (PROTONIX) PO SCH (09:19)
[2017-04-27] MEDS: SENOKOT S TAB PO SCH (09:19)
[2017-04-27] MEDS: HEPARIN SOD (PORCINE) 5000 UNITS/ML VIAL SC SCH (09:20)
[2017-04-27] MEDS: FLUoxetine 20 MG CAP PO SCH (09:20)
[2017-04-27 12:00] VITALS: BP 145/71
[2017-04-27 12:48] LABS: ANION GAP 8 MEQ/L (8-16); BLOOD UREA NITROGEN 16 MG/DL (7-18); CALCIUM LEVEL 9.4 MG/DL (8.8-10.2); CARBON DIOXIDE LEVEL 23 MEQ/L (21-32); CHLORIDE LEVEL 102 MEQ/L (98-107); CREATININE FOR GFR 0.78 MG/DL (0.55-1.02); GLOMERULAR FILTRATION RATE > 60.0 (>39); GLUCOSE, FASTING 168 MG/DL (83-110); POTASSIUM SERUM 4.8 MEQ/L (3.5-5.1); SODIUM LEVEL 133 MEQ/L (136-145)
[2017-04-27] MEDS ORDERED: LEVA1TAB PO (13:55)
[2017-04-27] MEDS ORDERED: FLAG500T PO (13:55)
[2017-04-27] MEDS ORDERED: ADV100INH INH (13:55)
[2017-04-27] MEDS ORDERED: AMLO10TA2 PO (13:55)
[2017-04-27] MEDS ORDERED: ALBU17IN2 INH (13:55)
[2017-04-27] MEDS ORDERED: PRED10TA2 PO (13:55)
[2017-04-27] MEDS ORDERED: SPIR1CAP INH (13:55)
[2017-04-27] MEDS ORDERED: CARV12.5 PO (13:55)
[2017-04-27] MEDS ORDERED: OMEP20CA3 PO (13:55)
[2017-04-27] MEDS ORDERED: PROAAER10 INH (15:13)
--- NOTE | 2017-04-27 19:54 | DSES ---
DATE OF ADMISSION: 04/20/2017 DATE OF DISCHARGE: 04/27/2017 ATTENDING PHYSICIAN: Dr. Manjinder Nguyen, Dr. Bee Richardson PRIMARY CARE PHYSICIAN: In [place]. REFERRING PHYSICIAN: None. CONSULTING PHYSICIANS: Dr. Primo Cabrera, Dr. Henderson. CONDITION ON DISCHARGE: Stable. FINAL DIAGNOSES: 1. Sepsis secondary to community-acquired pneumonia and colitis. 2. Acute metabolic encephalopathy, possibly secondary to sepsis. 3. Acute kidney injury. PROCEDURES: None. HISTORY OF PRESENT ILLNESS: Patient is a 72-year-old female with a past medical history of hypertension, dyslipidemia, coronary artery disease, history of myocardial infarction (MA), diabetes mellitus, type 2, breast cancer, cervical cancer, and depression who presented as a transfer from [facility] for altered mental status, thought to be secondary to colitis and pneumonia. Patient was admitted and started on Levaquin and Flagyl for coverage. HOSPITAL COURSE: 1. Sepsis secondary to community-acquired pneumonia and colitis. Presented as a transfer from [facility]. X-rays on April 20 showed interstitial infiltrates, focal alveolar infiltrate inferiorly in the left lower lobe. CT chest on April 20 revealed multifocal airspace disease, possibly bronchopneumonia. Early cavitation and lingular consolidation. Followup suggested to exclude neoplastic pathology, bronchiolitis, and emphysema. Dr. Cabrera was called on consult. CT abdomen on April 20 showed enterocolitis. Patient was put on Levaquin and Flagyl for 7 days. She will continue antibiotics as an outpatient for completion of 10-day course. Patient was advised to followup with her primary care provider as well as Dr. Cabrera within the next 7 days upon discharge. 2. Status post acute metabolic encephalopathy, possibly secondary to sepsis, possibly secondary to underlying dementia, which is progressive. Was noted to have been functioning well outside the hospital. Arrived in [place] to provide assistance to her friend's father who is in hospice. Patient is noted to have drive outside the hospital. Currently the patient is fully oriented. Does not have any focal deficits. Is oriented to person, place, and time. CT head on April 25 revealed small-vessel ischemic disease. Minimal volume loss. 3. Emphysema. Does not have any complaints of shortness of breath. She has no wheezing on physical exam. Patient was started on Spiriva and DuoNeb. Patient was also started on steroids and will continue her steroids as an outpatient on a tapering basis. 4. Status post acute kidney injury, status post intravenous (IV) fluids. 5. Status post hypernatremia. 6. Status post non-anion gap metabolic acidosis. 7. Status post hypokalemia. 8. Hypertension. Blood pressure remains elevated at the end of her hospital course, and her blood pressure medications were adjusted to amlodipine 10. Otherwise carvedilol 12.5 mg by mouth twice a day. 9. Diabetes mellitus, type 2. She was put in insulin sliding scale and Levemir, and upon discharge she was returned back to her oral diabetic medication. 10. Gastroesophageal reflux disease (GERD). Continue with Protonix. 11. Deep vein thrombosis (DVT) prophylaxis. She has been put on heparin. Patient cleared by physical therapy and has been deemed fit for discharge home. DISCHARGE MEDICATIONS: Patient has been discharged home on the following medication list: - ProAir one puff inhaled every 4 hours as needed for shortness of breath - amlodipine 10 mg by mouth daily - carvedilol 12.5 mg by mouth twice a day - levofloxacin 250 mg daily for the next 4 days - Flagyl 500 mg by mouth every 8 hours for the next 4 days - omeprazole 20 mg by mouth daily - prednisone to be taken as directed - Advair Diskus 100/50 mcg one puff inhaled twice a day - Spiriva one puff inhaled daily - baclofen 10 mg by mouth three times a day for muscle spasms - Senokot 100 mg by mouth twice a day - diazepam 5 mg by mouth three times a day as needed for anxiety - fluoxetine 40 mg by mouth daily - letrozole 2.5 mg by mouth daily - metformin 1000 mg by mouth twice a day - nitroglycerine 0.5 grams topically as directed - pregabalin 150 mg by mouth twice a day - sitagliptin 100 mg by mouth daily DISCHARGE INSTRUCTIONS: Patient has been advised to followup with her primary care provider as well as pulmonary within the next 7 days. She has been advised to remain compliant with treatment plan and medications and return to the emergency room if she experiences any problems. TIME SPENT ON DISCHARGE: Greater than 35 minutes. .
== END 2017-04-27 16:30 | disposition home or self-care (01) | DRG 871 ==
LOC: EDBD 04:57 → M ED 04:57 → M ED INP 05:46 → M ICU 07:49 → M PCU 04-21 14:52
PROVIDERS: ADMIT Internal Medicine Nephrology; ATTEND Internal Medicine
DX: A41.9 Sepsis, unspecified organism (principal); G93.41 Metabolic encephalopathy; J18.9 Pneumonia, unspecified organism; N17.9 Acute kidney failure, unspecified; J44.1 Chronic obstructive pulmonary disease with (acute) exacerbation; N25.81 Secondary hyperparathyroidism of renal origin; E87.1 Hypo-osmolality and hyponatremia; R65.20 Severe sepsis without septic shock; K52.9 Noninfective gastroenteritis and colitis, unspecified; I25.10 Atherosclerotic heart disease of native coronary artery without angina pectoris; I25.2 Old myocardial infarction; E11.9 Type 2 diabetes mellitus without complications; F32.9 Major depressive disorder, single episode, unspecified; I10 Essential (primary) hypertension; K21.9 Gastro-esophageal reflux disease without esophagitis; Z79.899 Other long term (current) drug therapy; Z85.3 Personal history of malignant neoplasm of breast; Z85.41 Personal history of malignant neoplasm of cervix uteri; Z88.0 Allergy status to penicillin; E78.5 Hyperlipidemia, unspecified; D50.9 Iron deficiency anemia, unspecified; F17.200 Nicotine dependence, unspecified, uncomplicated; E87.6 Hypokalemia